=== PATIENT | male | born 1970 | race Caucasian/White ===

== ENCOUNTER 2020-08-30 12:45 | Emergency (ER) | payer MEDICARE, MEDICAID ==
[~2020-08-30] VITALS: Ht 172.7 cm; Wt 95.5 kg
[2020-08-30] MEDS ORDERED: TETanus/Pertussis (Acell)/Diphther VAC/PF (Tdap-Adult) 0.5ml syringe IMVAC ONE (13:35)
[2020-08-30] MEDS ORDERED: CEPH250T PO (14:38)
[2020-08-30 15:14] VITALS: BP 142/100
== END 2020-08-30 15:17 | disposition home or self-care (01) ==
LOC: ER 12:46
DX: S81.012A Laceration without foreign body, left knee, initial encounter (principal); Z20.3 Contact with and (suspected) exposure to rabies; Z88.8 Allergy status to other drugs, medicaments and biological substances; Z79.2 Long term (current) use of antibiotics; X58.XXXA Exposure to other specified factors, initial encounter; Y93.89 Activity, other specified; Y92.89 Other specified places as the place of occurrence of the external cause; Y99.8 Other external cause status
CPT/HCPCS: 12032; 73564; 90471; 90715; 99284